=== PATIENT | female | born 1945 | race Native Hawaiian/Other Pacific Islander ===

== ENCOUNTER 2018-07-10 21:46 | Emergency (ER) | payer OTHER ==
--- NOTE | 2018-07-10 22:34 | ED PDOC ---
HPI: Trauma/Fall - HPI Time Seen by Provider: 07/10/18 22:10 Chief Complaint (Nursing): Trauma Chief Complaint (Provider): head injury and knee pain History Per: Patient, Family History/Exam Limitations: no limitations Injury Occurred (Timing): Today @ (6pm) Additional Complaint(s): mechanical trip and fall at 6pm while caring for 8yo grandson, landed on RIGHT side and sustained RIGHT head injury and bruise RIGHT knee and elbow Denies loss of consciousness or nausea or focal weakness PMD from [place] Past Medical History Reviewed: Historical Data, Nursing Documentation, Vital Signs Vital Signs: Last Vital Signs Temp 98.3 F 07/10/18 22:00 Pulse 57 L 07/10/18 22:00 Resp 16 07/10/18 22:00 BP 140/65 07/10/18 22:00 Pulse Ox 98 07/10/18 22:00 Primary Care Provider: FAMILY PROVIDER,NO - Medical History PMH: HTN, Osteoporosis - Family History Family History: States: Hypertension - Living Arrangements Living Arrangements: With Family - Social History Current smoker - smoking cessation education provided: No Alcohol: None - Allergies Allergies/Adverse Reactions: Allergies Allergy/AdvReac Type Severity Reaction Status Date / Time No Known Allergies Allergy Verified 07/10/18 22:05 Review of Systems ROS Statement: Except As Marked, All Systems Reviewed And Found Negative (and as per HPI) Gastrointestinal: Negative for: Nausea Musculoskeletal: Positive for: Neck Pain, Arm Pain, Leg Pain Skin: Positive for: Lesions, Bruising Neurological: Positive for: Headache Physical Exam - Reviewed Nursing Documentation Reviewed: Yes Vital Signs Reviewed: Yes - Physical Exam Appears: Positive for: Non-toxic, In Acute Distress Head Exam: Positive for: NORMOCEPHALIC (hematoma and bruise RIGHT forehead/brow) Skin: Positive for: Warm, Dry Eye Exam: Positive for: EOMI, PERRL ENT: Positive for: Normal ENT Inspection Neck: Positive for: Painless ROM, Supple Cardiovascular/Chest: Positive for: Regular Rate, Rhythm. Negative for: Murmur Respiratory: Positive for: Normal Breath Sounds. Negative for: Respiratory Distress Gastrointestinal/Abdominal: Positive for: Soft. Negative for: Tenderness Back: Positive for: Normal Inspection. Negative for: Decreased ROM Extremity: Positive for: Normal ROM, Other (RIGHT elbow: FROM, no deformity, +small hematoma and ecchymosis olecranon. RIGHT knee: FROM, no deformity, +ecchymosis patella). 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 Negative for: Motor/Sensory Deficits, Facial Droop - ECG O2 Sat by Pulse Oximetry: 98 Medical Decision Making Medical Decision Makin CT Head W/O Contrast FINDINGS: BRAIN: No acute intraparenchymal hemorrhage. No mass lesion. No CT evidence for acute territorial infarct. No midline shift or extra-axial collections. There is mild age-appropriate cerebral and cerebellar atrophy noted. There are bilateral periventricular and subcortical white matter hypolucencies compatible with mild chronic microvascular disease. VENTRICLES: No hydrocephalus. ORBITS: The orbits are unremarkable. SINUSES AND MASTOIDS: The paranasal sinuses and mastoid air cells are clear. BONES: No fracture. SOFT TISSUES: Unremarkable. IMPRESSION: 1. No acute intracranial abnormality. 2. Mild age-appropriate cerebral and cerebellar atrophy. 3. Evidence of mild chronic microvascular disease. CT Cervical Spine FINDINGS: ALIGNMENT: Bony alignment is anatomic. DEGENERATIVE CHANGES: No significant canal stenosis or neural foraminal narrowing evident. Bilateral apophyseal facet arthropathy is seen at C2-3, C3-4, C4-5, C5-6, C6-7. Moderate degenerative arthritis is seen within the atlanto-dens interval. Moderate disc interspace narrowing is seen at C5-6 consistent with moderate degenerative disc disease. SOFT TISSUES: The prevertebral soft tissues are within normal limits. BONES: No acute fracture or aggressive appearing osseous lesion. IMPRESSION: 1. No acute cervical spine abnormality. 2. Bilateral apophyseal facet arthropathy noted at C2-3, C3-4, C4-5, C5-6, C6- 7. 3. 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 4. Moderate degenerative disc disease at C5-6. Disposition - Clinical Impression Clinical Impression: Head injury, Elbow contusion, Knee contusion - Disposition Referrals: [facility] [Outside] (FOLLOWUP WITH YOUR DOCTOR OR [facility] IN 2-3 DAYS FOR REEVALUATION) Disposition: Routine/Home Disposition Time: 00:06 Condition: STABLE Additional Instructions: TYLENOL OR MOTRIN NEEDED FOR PAIN ICE BRUISES AND SWELLING AVOID STRENUOUS ACTIVITY Instructions: Contusion (DC), Minor Head Injury (DC)
[2018-07-11 02:22] VITALS: BP 148/80; PULSE 86; RESP 18; TEMP 98.4
--- NOTE | 2018-07-11 10:23 | RAD ---
Date of service: 07/10/2018 PROCEDURE: Right Knee Radiographs. HISTORY: Fall, trauma pain COMPARISON: None TECHNIQUE: 2 views obtained. FINDINGS: BONES: Normal. No fracture. JOINTS: Minimal spurring of the tibial spines lateral greater than medial. There also appears to be a tiny anterior superior patella enthesophyte. JOINT EFFUSION: None. OTHER FINDINGS: None. IMPRESSION: No evidence of acute displaced fractures nor dislocation. Slight spurring of the tibial spines with small anterior superior patella enthesophyte.
--- NOTE | 2018-07-11 10:25 | RAD ---
Date of service: 07/10/2018 PROCEDURE: Radiographs of the right elbow. HISTORY: Fall trauma pain COMPARISON: No prior. TECHNIQUE: 3 views obtained. FINDINGS: BONES: Normal. No fracture. JOINTS: Normal. No osteoarthritis. SOFT TISSUES: Normal. JOINT EFFUSION: No significant joint effusion OTHER FINDINGS: None. IMPRESSION: No acute fractures. If symptoms persist or occult fracture suspected clinically follow-up CT scan could be performed further evaluation if clinically indicated
--- NOTE | 2018-07-11 10:47 | CT ---
Date of service: 07/10/2018 PROCEDURE: CT HEAD WITHOUT CONTRAST. HISTORY: Trauma COMPARISON: None available. TECHNIQUE: Axial computed tomography images were obtained through the head/brain without intravenous contrast. Radiation dose: Total exam DLP = 804.23 mGy-cm. This CT exam was performed using one or more of the following dose reduction techniques: Automated exposure control, adjustment of the mA and/or kV according to patient size, and/or use of iterative reconstruction technique. FINDINGS: HEMORRHAGE: No acute parenchymal, subarachnoid or extra-axial hemorrhage. BRAIN: There is a small localized area of low attenuation seen in the right posterior superior frontal subcortical white matter likely representing chronic ischemic focus. Minimal chronic periventricular white matter ischemic changes are also felt be present. Mild generalized volume loss VENTRICLES: No obstructive hydrocephalus. CALVARIUM: No acute calvarial fractures. PARANASAL SINUSES: Unremarkable as visualized. No significant inflammatory changes. MASTOID AIR CELLS: Unremarkable as visualized. No inflammatory changes. OTHER FINDINGS: There is right-sided periorbital and supraorbital/inferior frontal soft tissue swelling.. Soft tissue swelling extends posteriorly over the right infratemporal fossa region Changes of bilateral cataract surgery also noted IMPRESSION: There is a small localized area of low attenuation seen in the right posterior superior frontal subcortical white matter likely representing chronic ischemic focus. Minimal chronic periventricular white matter ischemic changes are also felt be present. There is right-sided periorbital and supraorbital/inferior frontal soft tissue swelling.. Soft tissue swelling extends posteriorly over the right infratemporal fossa region Changes of bilateral cataract surgery also noted Mild generalized volume loss
--- NOTE | 2018-07-11 11:43 | CT ---
Date of service: 07/10/2018 PROCEDURE: CT Cervical Spine without contrast HISTORY: Neck pain, head injury COMPARISON: None available. TECHNIQUE: Axial computed tomography images were obtained of the cervical spine without the use of intravenous contrast. Coronal and sagittal reformatted images were created and reviewed. Radiation dose: Total exam DLP = 250.76 mGy-cm. This CT exam was performed using one or more of the following dose reduction techniques: Automated exposure control, adjustment of the mA and/or kV according to patient size, and/or use of iterative reconstruction technique. FINDINGS: VERTEBRAE: No acute compression fractures nor retropulsed fragments. Vertebral bodies exhibit relatively normal stature. Minimal kyphotic angulation deformity centered at the C4-C5 level with straightening of the normal cervical lordosis above and below this level in part due to patient positioning gantry however underlying element of mild muscle spasm may contribute.. DISCS/SPINAL CANAL/NEURAL FORAMINA: Mild multilevel degenerative spondylosis present. At the C5-C6 level, there is disc space narrowing cortical endplate irregularity and irregular osteophytic ridge disc complex larger on the left than right and contiguous with hypertrophic uncovertebral joints. Facets also quite hypertrophic on the right and moderately hypertrophic on the left side. There is significant central canal stenosis and cord compression more so on the left side. Exit foramina are stenotic bilaterally right greater than left. At the C6-C7 level, there is a relatively adequate disc height. Small broad-based disc bulge is present. The uncovertebral facet joints are slightly upper trophic. The central canal appears slightly narrowed. Exit foramina adequate. At the C4-C5 level, there is relatively adequate disc height. Small asymmetric disc bulge ridge complex slightly larger on the left than right present. The facets are quite hypertrophic on the right side and mildly hypertrophic on the left. Central canal is mildly narrowed more so on the left side. Exit foramina are marginal to slightly narrowed on the right and marginal to adequate on the left. PARASPINAL SOFT TISSUES: Unremarkable. OTHER FINDINGS: Mild biapical pleural thickening and parenchymal scarring. IMPRESSION: No acute fractures. Multilevel degenerative spondylosis most notably affecting the C5-C6 level with significant canal stenosis and cord compression left greater than right as described.
[2018-07-11 16:01] VITALS: O2SAT 98
== END 2018-07-11 00:25 | disposition home or self-care (01) ==
LOC: H.ER 21:46
DX: S09.90XA Unspecified injury of head, initial encounter (principal); S50.01XA Contusion of right elbow, initial encounter; S80.01XA Contusion of right knee, initial encounter; I10 Essential (primary) hypertension; M50.322 Other cervical disc degeneration at C5-C6 level; M48.02 Spinal stenosis, cervical region; M81.0 Age-related osteoporosis without current pathological fracture; W01.0XXA Fall on same level from slipping, tripping and stumbling without subsequent striking against object, initial encounter